=== PATIENT | female | born 1990 | race Caucasian/White ===

== ENCOUNTER 2019-05-11 18:50 | Emergency (ER) | payer OTHER ==
[~2019-05-11] VITALS: Ht 160 cm; Wt 56.7 kg
--- NOTE | 2019-05-11 19:35 | NUR ---
Pt states she doesn't want to wait for her rapid flu swab results & wants to be d/c home. Dr. Holcomb notified. Patient discharged to home in stable conditon. Written and verbal after care instructions given. Patient verbalizes understanding of instructions.
[2019-05-11 19:36] VITALS: BP 104/68
== END 2019-05-11 19:36 | disposition home or self-care (01) ==
LOC: ER 18:53
DX: B34.9 Viral infection, unspecified (principal)
CPT/HCPCS: 87400; A4663